=== PATIENT | female | born 1975 | race American Indian/Alaskan Native ===

== ENCOUNTER 2016-11-12 07:19 | Outpatient (CLI) | payer MEDICAID ==
--- NOTE | 2016-11-12 08:42 | Ultrasound Report ---
ULTRASOUND ABDOMEN COMPLETE: Technique: Transabdominal ultrasound with color Doppler interrogation. History: Abdominal pain. Findings: The liver is normal size, contour and echotexture. The gallbladder dimensions are within normal limits without intraluminal stone, wall thickening, or pericholecystic fluid. The CBD is normal caliber. The visualized portions of the pancreas including the head and proximal body are within normal limits. The kidneys demonstrate no hydronephrosis or mass. Cortical thickness and echogenicity are within normal limits bilaterally. The spleen and aorta are within normal limits. No aneurysmal dilatation is noted. No ascites. The bladder is unremarkable. IMPRESSION: Unremarkable abdominal ultrasound.
== END 2016-11-12 07:20 | disposition home or self-care (01) ==
LOC: US 07:19
PROVIDERS: ATTEND Internal Medicine
DX: R10.9 Unspecified abdominal pain (principal)
CPT/HCPCS: 76700

== ENCOUNTER 2017-02-11 01:48 | Emergency (ER) | payer MEDICAID ==
[2017-02-11] MEDS ORDERED: TYLENOL PO ONE (02:14)
[2017-02-11 03:14] LABS: Basophils % (Auto) 0.4 % (0.0-1.8); Eosinophils % (Auto) 1.5 % (0.0-4.3); Hematocrit 36.3 % (30.3-42.9); Mean Corpuscular HGB Conc 33 % (30-34); Mean Corpuscular Hemoglobin 28 pg (28-32); Mean Corpuscular Volume 85 fl (79-97); Platelet Count 269 K/mm3 (140-440); Red Blood Count 4.27 M/mm3 (3.65-5.03); Red Cell Distribution Width 12.3 % (13.2-15.2); White Blood Count 7.4 K/mm3 (4.5-11.0)
[2017-02-11 03:25] LABS: Alanine Aminotransferase 11 units/L (7-56); Albumin/Globulin Ratio 1.4 %; Alkaline Phosphatase 55 units/L (35-129); Anion Gap 19 mmol/L; Bilirubin,Total 0.6 mg/dL (0.1-1.2); Blood Urea Nitrogen 14 mg/dL (7-17); Calcium 8.8 mg/dL (8.4-10.2); Carbon Dioxide 24 mmol/L (22-30); Chloride 99.1 mmol/L (98-107); Glucose 95 mg/dL (65-100); Lipase 16 units/L (13-60); Potassium 3.6 mmol/L (3.6-5.0); Sodium 138 mmol/L (137-145); Total Protein 6.8 g/dL (6.3-8.2)
[2017-02-11 04:20] LABS: Bilirubin,Urine NEG (Negative); Blood,Urine MOD (Negative); Ketones,Urine NEG (Negative); Leukocyte Esterase,Urine NEG (Negative); Mucus,Urine 2+ /HPF; Nitrite,Urine NEG (Negative); Protein,Urine <15 mg/dL mg/dL (Negative); Urobilinogen,Urine < 2.0 mg/dL (<2.0)
--- NOTE | 2017-02-11 07:36 | Cat Scan Report ---
FINAL REPORT PROCEDURE: CT ABDOMEN PELVIS W CON TECHNIQUE: Computerized axial tomography of the abdomen and pelvis was performed after the IV injection of iodinated nonionic contrast. HISTORY: RIGHT LOWER ABD PAIN COMPARISON: Contrast-enhanced CT of the abdomen and pelvis 08/18/2015 FINDINGS: Visualized lower thorax: No significant abnormality. Liver: Stable 1.3 centimeter enhancement of the medial segment of the left lobe bordering the gallbladder. Spleen: Normal size and attenuation. Gallbladder and biliary system: Normal. Pancreas: Normal. Adrenals: Normal. Kidneys: Normal. GI tract: Limited in evaluation without oral contrast. No bowel obstruction or gross focal bowel abnormality. Normal appendix. Lymph nodes and mesentery: No lymphadenopathy or mesenteric mass. Vasculature: Normal. Bladder: Normal. Reproductive organs: 2.1 x 2 centimeter right ovarian hypodensity. Unremarkable left ovary. Focal air within the lower uterine segment. Peritoneum: No free fluid. Musculoskeletal structures: Umbilical hernia containing fat, hernia mouth 1.9 centimeters in transverse diameter. Other: None. IMPRESSION: Umbilical hernia containing fat hernia mouth 1.9 centimeters in transverse diameter. Correlate for symptomatology in this location. Stable 1.3 centimeter enhancement of the liver bordering the gallbladder likely a hemangioma or benign transient hepatic attenuation difference. 2.1 x 2 centimeter right ovarian hypodensity likely a cyst. Focal air within the lower uterine segment. Correlate for possible recent instrumentation possibly with tampon. Endometritis is not excluded.
[2017-02-11] MEDS ORDERED: NORCO 5/325 PO ONE ×2 (08:49→13:17)
--- NOTE | 2017-02-11 09:04 | Emergency Department Report ---
ED Abdominal Pain HPI - General Chief Complaint: Abdominal Pain Stated Complaint: RIGHT SIDE ABD PAIN Time Seen by Provider: 02/11/17 08:43 Source: patient Mode of arrival: Wheelchair Limitations: No Limitations - History of Present Illness Initial Comments: 42-year-old female presents to emergency department complaining of acute onset of right lower abdominal pain that awoke her from sleep at approximately 11:30 PM last night. Patient describes a squeezing type pain that radiates into her groin. Pain has been constant since onset. She reports mild associated nausea , but has not vomited. She denies fever, diarrhea, vaginal bleeding, vaginal discharge, dysuria, or hematuria. There are no other complaints. MD Complaint: abdominal pain -: Sudden, During the night Time: 22:30 Location: RLQ Radiation: other (pelvis) Migration to: no migration Severity: severe Severity scale (0 -10): 10 Quality: other (squeezing) Consistency: constant Improves With: nothing Worsens With: nothing Associated Symptoms: nausea - Related Data Home Medications Medication Instructions Recorded Confirmed Last Taken Pnv with Ca,No.72/Iron/FA [Pnv 1 tab PO DAILY 01/03/14 08/18/15 01/03/14 08:30 Plus Multivit Tab] 1tab Previous Rx's Medication Instructions Recorded Last Taken Type Ibuprofen [Motrin 800 MG tab] 800 mg PO TID PRN #30 tablet 08/20/15 Unknown Rx Labetalol [Normodyne TAB] 200 mg PO BID #60 tablet 08/20/15 Unknown Rx oxyCODONE /ACETAMINOPHEN [Percocet 1 - 2 tab PO Q4HR PRN #30 tablet 08/20/15 Unknown Rx 5/325 mg] HYDROcodone/APAP 5-325 [[place] 1 each PO Q6HR PRN #30 tablet 02/11/17 Unknown Rx 5/325] Allergies Allergy/AdvReac Type Severity Reaction Status Date / Time No Known Allergies Allergy Verified 10/16/13 08:48 ED Review of Systems ROS: Stated complaint: RIGHT SIDE ABD PAIN Other details as noted in HPI Comment: All other systems reviewed and negative Gastrointestinal: as per HPI, abdominal pain, nausea ED Past Medical Hx - Past Medical History Previous Medical History?: Yes Hx Hypertension: Yes Hx Heart Attack/AMI: No Hx Congestive Heart Failure: No Hx Diabetes: No Hx Deep Vein Thrombosis: No Hx Pulmonary Embolism: No Hx GERD: Yes Hx Liver Disease: No Hx Renal Disease: No Hx Sickle Cell Disease: No Hx Headaches / Migraines: No Hx Seizures: No Hx Asthma: Yes Hx COPD: No Hx Tuberculosis: No Hx HIV: No - Surgical History Past Surgical History?: Yes Additional Surgical History: C SECTION - Family History Family history: no significant - Social History Smoking Status: Never Smoker Substance Use Type: None - Medications Home Medications: Home Medications Medication Instructions Recorded Confirmed Last Taken Type Pnv with Ca,No.72/Iron/FA [Pnv 1 tab PO DAILY 01/03/14 08/18/15 01/03/14 08:30 History Plus Multivit Tab] 1tab Ibuprofen [Motrin 800 MG tab] 800 mg PO TID PRN #30 tablet 08/20/15 Unknown Rx Labetalol [Normodyne TAB] 200 mg PO BID #60 tablet 08/20/15 Unknown Rx oxyCODONE /ACETAMINOPHEN [Percocet 1 - 2 tab PO Q4HR PRN #30 tablet 08/20/15 Unknown Rx 5/325 mg] HYDROcodone/APAP 5-325 [[place] 1 each PO Q6HR PRN #30 tablet 02/11/17 Unknown Rx 5/325] ED Physical Exam - General Limitations: No Limitations General appearance: alert, in no apparent distress - Head Head exam: Present: atraumatic, normocephalic - Eye Eye exam: Present: normal appearance, PERRL, EOMI - ENT ENT exam: Present: normal exam, normal orophraynx, mucous membranes moist - Neck Neck exam: Present: normal inspection, full ROM. Absent: tenderness - Respiratory Respiratory exam: Present: normal lung sounds bilaterally. Absent: respiratory distress - Cardiovascular Cardiovascular Exam: Present: regular rate, normal rhythm, normal heart sounds - GI/Abdominal GI/Abdominal exam: Present: soft, tenderness (moderate tenderness to palpation right lower quadrant), normal bowel sounds. Absent: distended, guarding, rebound - Extremities Exam Extremities exam: Present: normal inspection, full ROM. Absent: tenderness - Back Exam Back exam: Present: normal inspection, full ROM. Absent: tenderness - Neurological Exam Neurological exam: Present: alert, oriented X3. Absent: motor sensory deficit - Skin Skin exam: Present: warm, dry, intact ED Course Vital Signs 02/11/17 02/11/17 02:04 08:59 Temperature 97.8 F Pulse Rate 68 Respiratory 22 16 Rate Blood Pressure 127/86 O2 Sat by Pulse 97 Oximetry ED Medical Decision Making - Lab Data Result diagrams: 02/11/17 02:38 02/11/17 02:38 - Radiology Data Radiology results: report reviewed, image reviewed CT of the abdomen and pelvis reveals a 2.1 x 2 cm hypodensity suggestive of a right ovarian cyst. There is also some air in the lower uterine segment consistent with recent instrumentation. Pelvic ultrasound reveals a 1.9 cm right ovarian cyst. There are no other abnormalities noted. - Medical Decision Making Lab and imaging results reviewed and discussed with the patient. Patient reports her pain is improved with medication. Patient will be discharged home at this time to follow up with her [employer]. - Differential Diagnosis abdominal pain, UTI, appendicitis, ruptured ovarian cyst Critical care attestation.: If time is entered above; I have spent that time in minutes in the direct care of this critically ill patient, excluding procedure time. ED Disposition Clinical Impression: Right ovarian cyst Disposition: DISCHARGED TO HOME OR SELFCARE Is pt being admited?: No Condition: Stable Instructions: Ovarian Cyst (ED) Prescriptions: HYDROcodone/APAP 5-325 [[place] 5/325] 1 each PO Q6HR PRN #30 tablet PRN Reason: Pain Referrals: DARBY HERNANDEZ MD [Staff Physician] - 3-5 Days Time of Disposition: 13:32
--- NOTE | 2017-02-11 12:47 | Ultrasound Report ---
ULTRASOUND PELVIC COMPLETE HISTORY: Right pelvic pain. TECHNIQUE: Transabdominal and transvaginal ultrasound with color and spectral doppler interrogation. FINDINGS: Hysterectomy changes are noted consistent with history. The right ovary measures 3.3 x 2.1 x 2.6 cm. A 1.9 cm cyst is noted in the right ovary. The left ovary is unremarkable measuring 3.4 x 4.0 x 2.7 cm. IMPRESSION: 1.9 cm right ovarian cyst.
[2017-02-11 13:51] VITALS: BP 134/82
== END 2017-02-11 13:51 | disposition home or self-care (01) ==
LOC: ED 01:48
DX: N83.201 Unspecified ovarian cyst, right side (principal); I10 Essential (primary) hypertension; K21.9 Gastro-esophageal reflux disease without esophagitis
CPT/HCPCS: 36415; 74177; 76830; 76856; 80053; 81001; 83690; 85025; 99284; Q9967

== ENCOUNTER 2017-12-31 16:59 | Emergency (ER) | payer MEDICAID ==
[2017-12-31 17:08] VITALS: BP 182/101
[2017-12-31] MEDS ORDERED: ASPIRIN PO ONE (17:21)
== END 2017-12-31 17:19 | disposition left against medical advice (07) ==
LOC: ED 16:59
DX: R07.9 Chest pain, unspecified (principal); Z53.21 Procedure and treatment not carried out due to patient leaving prior to being seen by health care provider
CPT/HCPCS: 93005; 93010

== ENCOUNTER 2018-01-19 12:02 | Outpatient (CLI) | payer MEDICAID ==
--- NOTE | 2018-01-19 15:18 | Cat Scan Report ---
CT SINUSES WITHOUT CONTRAST INDICATION: Atypical facial pain, chronic rhinitis. COMPARISON: None similar. FINDINGS: Noncontrast sinus CT demonstrates clear paranasal sinuses and imaged temporal bone air cells. Mild nasal septal deviation superiorly, coronal image 32. Unremarkable eye globes and retrobulbar fat. Normal imaged intracranial appearance. Intact facial bones. Multiple radiopaque dental fillings and some dental disease. CONCLUSION: Unremarkable sinus CT with few incidental findings, as described. Thank you for the opportunity to participate in this patient's care.
== END 2018-01-19 12:03 | disposition home or self-care (01) ==
LOC: CT 12:02
PROVIDERS: ATTEND Otolaryngology
DX: J31.0 Chronic rhinitis (principal); J34.2 Deviated nasal septum; I10 Essential (primary) hypertension; K21.9 Gastro-esophageal reflux disease without esophagitis; J45.909 Unspecified asthma, uncomplicated; Z79.899 Other long term (current) drug therapy
CPT/HCPCS: 70486

== ENCOUNTER 2019-05-21 09:29 | Emergency (ER) | payer MEDICAID ==
[2019-05-21] MEDS ORDERED: ASPIRIN PO ONE (09:37)
[2019-05-21 09:39] VITALS: BP 142/76
[2019-05-21 10:02] LABS: Basophils # (Auto) 0.1 K/mm3 (0.0-0.1); Basophils % (Auto) 0.8 % (0.0-1.8); Eosinophils # (Auto) 0.1 K/mm3 (0.0-0.4); Eosinophils % (Auto) 1.7 % (0.0-4.3); Hematocrit 39.4 % (30.3-42.9); Lymphocytes # (Auto) 2.5 K/mm3 (1.2-5.4); Lymphocytes % (Auto) 32.7 % (13.4-35.0); Mean Corpuscular HGB Conc 33 % (30-34); Mean Corpuscular Volume 89 fl (79-97); Monocytes # (Auto) 0.4 K/mm3 (0.0-0.8); Monocytes % (Auto) 5.7 % (0.0-7.3); Platelet Count 299 K/mm3 (140-440); Red Blood Count 4.44 M/mm3 (3.65-5.03); Red Cell Distribution Width 13.3 % (13.2-15.2)
[2019-05-21 10:19] LABS: BUN/Creatinine Ratio 11; Blood Urea Nitrogen 10 mg/dL (7-17); Calcium 9.4 mg/dL (8.4-10.2); Hemolysis Index 11
--- NOTE | 2019-05-21 10:20 | XRay Report ---
CHEST 2 VIEWS, 05/21/2019 INDICATION: Chest pain COMPARISON: None FINDINGS: Support devices: None Heart: Heart size and pulmonary vascularity are within normal limits. Lungs/pleura: There is no focal airspace disease or significant pleural effusion. Additional findings: No additional acute findings. IMPRESSION: 1. No evidence of acute cardiopulmonary process. Signer Name: Lora Mitchell MD Signed: 05/21/2019 10:16 AM Workstation Name: [email or web address]
--- NOTE | 2019-05-21 11:10 | Emergency Department Report ---
ED Chest Pain HPI - General Chief Complaint: Chest Pain Stated Complaint: CHEST PAIN/HEADACHE Time Seen by Provider: 05/21/19 10:53 Source: patient Mode of arrival: Ambulatory Limitations: No Limitations - History of Present Illness Initial Comments: Mrs. Rojo is a 44-year-old female with history of VSD, hypertension, degenerative disc disease of the spine who presents with chest pain and back pain. She was evaluated by her primary physician [facility] on Wednesday for elevated blood pressure and chest pain. She was diagnosed with anxiety. She was told to go home relax. However she had persistent chest pain over the weekend nonexertional. She also has exacerbation of back pain related to "degenerative disc disease". Denies shortness of breath. Denies leg pain. No recent travel. MD Complaint: chest pain -: Gradual, days(s) (3) Onset: during rest Pain Location: substernal, left chest, right chest Severity: mild Quality: sharp Consistency: constant Improves With: nothing Worsens With: nothing - Related Data Home Medications Medication Instructions Recorded Confirmed Last Taken Pnv,Calcium 72/Iron/Folic Acid 1 tab PO DAILY 01/03/14 08/18/15 01/03/14 08:30 [Pnv Plus Multivit Tab] 1tab Previous Rx's Medication Instructions Recorded Last Taken Type Ibuprofen [Motrin 800 MG tab] 800 mg PO TID PRN #30 tablet 08/20/15 Unknown Rx Labetalol [Labetalol 200mg TAB] 200 mg PO BID #60 tablet 08/20/15 Unknown Rx oxyCODONE /ACETAMINOPHEN [Percocet 1 - 2 tab PO Q4HR PRN #30 tablet 08/20/15 Unknown Rx 5/325 mg] HYDROcodone/APAP 5-325 [[place] 1 each PO Q6HR PRN #30 tablet 02/11/17 Unknown Rx 5/325] Allergies Allergy/AdvReac Type Severity Reaction Status Date / Time No Known Allergies Allergy Verified 10/16/13 08:48 Heart Score - HEART Score History: Slightly suspicious EKG: Normal Age: 45-65 Risk factors: 1-2 risk factors Troponin: < normal limit HEART Score: 2 ED Review of Systems ROS: Stated complaint: CHEST PAIN/HEADACHE Other details as noted in HPI Comment: All other systems reviewed and negative Constitutional: denies: fever, malaise Cardiovascular: chest pain ED Past Medical Hx - Past Medical History Previous Medical History?: Yes Hx Hypertension: Yes Hx Heart Attack/AMI: No Hx Congestive Heart Failure: No Hx Diabetes: No Hx Deep Vein Thrombosis: No Hx Pulmonary Embolism: No Hx GERD: Yes Hx Liver Disease: No Hx Renal Disease: No Hx Sickle Cell Disease: No Hx Headaches / Migraines: No Hx Seizures: No Hx Asthma: Yes Hx COPD: No Hx Tuberculosis: No Hx HIV: No - Surgical History Past Surgical History?: Yes Additional Surgical History: C SECTION - Social History Smoking Status: Never Smoker Substance Use Type: None - Medications Home Medications: Home Medications Medication Instructions Recorded Confirmed Last Taken Type Pnv,Calcium 72/Iron/Folic Acid 1 tab PO DAILY 01/03/14 08/18/15 01/03/14 08:30 History [Pnv Plus Multivit Tab] 1tab Ibuprofen [Motrin 800 MG tab] 800 mg PO TID PRN #30 tablet 08/20/15 Unknown Rx Labetalol [Labetalol 200mg TAB] 200 mg PO BID #60 tablet 08/20/15 Unknown Rx oxyCODONE /ACETAMINOPHEN [Percocet 1 - 2 tab PO Q4HR PRN #30 tablet 08/20/15 Unknown Rx 5/325 mg] HYDROcodone/APAP 5-325 [[place] 1 each PO Q6HR PRN #30 tablet 02/11/17 Unknown Rx 5/325] ED Physical Exam - General Limitations: No Limitations General appearance: alert, in no apparent distress - Head Head exam: Present: atraumatic, normocephalic - Eye Eye exam: Present: normal appearance - ENT ENT exam: Present: mucous membranes moist - Neck Neck exam: Present: normal inspection, full ROM - Respiratory Respiratory exam: Present: normal lung sounds bilaterally. Absent: respiratory distress, wheezes, rales, rhonchi - Cardiovascular Cardiovascular Exam: Present: regular rate, normal rhythm, normal heart sounds. Absent: systolic murmur, diastolic murmur, rubs, gallop - GI/Abdominal GI/Abdominal exam: Present: soft, normal bowel sounds. Absent: distended, tenderness, guarding, rebound - Extremities Exam Extremities exam: Present: normal inspection - Back Exam Back exam: Present: normal inspection - Neurological Exam Neurological exam: Present: alert, oriented X3 - Psychiatric Psychiatric exam: Present: normal affect, normal mood - Skin Skin exam: Present: warm, dry, intact, normal color. Absent: rash ED Course Vital Signs 05/21/19 05/21/19 05/21/19 09:34 09:36 10:40 Temperature 97.9 F 97.9 F Pulse Rate 98 H 57 L Respiratory 18 16 16 Rate Blood Pressure 142/76 Blood Pressure 142/76 [Right] O2 Sat by Pulse 98 98 Oximetry ED Medical Decision Making - Lab Data Result diagrams: 05/21/19 09:45 05/21/19 09:45 Abnormal Lab Results 05/21/19 05/21/19 09:45 09:45 WBC 7.5 RBC 4.44 Hgb 13.0 Hct 39.4 MCV 89 MCH 29 MCHC 33 RDW 13.3 Plt Count 299 Lymph % (Auto) 32.7 [place] % (Auto) 5.7 Eos % (Auto) 1.7 Baso % (Auto) 0.8 Lymph # 2.5 [place] # 0.4 Eos # 0.1 Baso # 0.1 Seg Neutrophils % 59.1 Seg Neutrophils # 4.5 Sodium 139 Potassium 3.7 Chloride 101.1 Carbon Dioxide 27 Anion Gap 15 BUN 10 Creatinine 0.9 Estimated GFR > 60 BUN/Creatinine Ratio 11 Glucose 81 Calcium 9.4 Troponin T < 0.010 - EKG Data EKG shows normal: axis, intervals, QRS complexes, ST-T waves Rate: bradycardia - EKG Data Interpretation: normal EKG ( sinus bradycardia with exception) - Radiology Data Radiology results: report reviewed Chest x-ray radiograph no acute process according to radiology report - Medical Decision Making Atypical chest pain, no limitation of ACS or pulmonary embolism, workup during the ED encounter within normal limits including EKG chest x-ray CBC chemistry troponin. Referred to latexer and outpatient setting. Also referred to her PCP at medical clinic. Given by mouth analgesia in the ER for back pain. Critical care attestation.: If time is entered above; I have spent that time in minutes in the direct care of this critically ill patient, excluding procedure time. ED Disposition Clinical Impression: Chest pain, Chronic back pain, Degenerative disc disease Disposition: DC-01 TO HOME OR SELFCARE Is pt being admited?: No Does the pt Need Aspirin: No Condition: Stable Instructions: Chest Pain (ED) Additional Instructions: You have been referred to a latexer. Please make an appointment this week. Referrals: INBA-JANINE KHALIL MD [Staff Physician] - [facility]
[2019-05-21] MEDS ORDERED: PERCOCET 5/325 PO ONE (11:11)
[2019-05-21] MEDS ORDERED: IBUPROFEN PO ONE (11:11)
== END 2019-05-21 11:53 | disposition home or self-care (01) ==
LOC: ED 09:29
DX: R07.89 Other chest pain (principal); G89.29 Other chronic pain; M54.9 Dorsalgia, unspecified; M51.36 Other intervertebral disc degeneration, lumbar region; I10 Essential (primary) hypertension; K21.0 Gastro-esophageal reflux disease with esophagitis; J45.909 Unspecified asthma, uncomplicated; Z79.899 Other long term (current) drug therapy
CPT/HCPCS: 36415; 71046; 80048; 84484; 85025; 93005; 93010; 99284

== ENCOUNTER 2022-03-14 10:59 | Emergency (ER) | payer MEDICAID ==
[2022-03-14 11:36] VITALS: BP 154/101
== END 2022-03-14 22:30 | disposition left against medical advice (07) ==
LOC: ED 10:59
DX: M26.56 Non-working side interference (principal); Z53.21 Procedure and treatment not carried out due to patient leaving prior to being seen by health care provider

== ENCOUNTER 2022-07-21 08:13 | Day surgery (SDC) | payer MEDICAID ==
[~2022-07-21 08:13] MED LIST: ACETAMINOPHEN 500 MG TAB PO SCH; CELECOXIB 200 MG CAP PO NR; GABAPENTIN 300 MG CAP PO NR; LACTATED RINGERS 1,000 ML IV SCH; MIDAZOLAM 2 MG/2 ML INJ IV NR; SCOPOLAMINE TRANSDERMAL PATCH 72 HR TD NR; fentaNYL 100 MCG/2 ML INJ IV PRN
[2022-07-21] MEDS ORDERED: BUPIVACAINE-EPINEPHRINE/PF 0.25%-1:200,000 (30 ML) VIAL INFILTRATI ONE (09:13)
[2022-07-21] MEDS ORDERED: dexAMETHasone 4 MG/ML VIAL ONE (09:13)
[2022-07-21] MEDS ORDERED: oxyCODONE /ACETAMINOPHEN 5-325MG TAB PO PRN (09:16)
[2022-07-21] MEDS ORDERED: ONDANSETRON 4 MG/2 ML INJ IV PRN (09:16)
--- NOTE | 2022-07-21 09:16 | Anesthesia Day of Surgery ---
Anesthesia Day of Surgery - Day of Surgery Patient Examined: Yes Patient H&P Reviewed: Yes Patient is NPO: Yes
--- NOTE | 2022-07-21 09:16 | Anesthesia Consultation ---
Anesthesia Consult and Med Hx Date of service: 07/21/22 - Airway Anesthetic Teeth Evaluation: Good ROM Head & Neck: Adequate (chronic neck pain with LUE neuropathy; may be triggered by flexion/extension) Mental/Hyoid Distance: Adequate Mallampati Class: Class I Intubation Access Assessment: Good - Pre-Operative Health Status ASA Pre-Surgery Classification: ASA3 Proposed Anesthetic Plan: General Nerve Block: TAP - Pulmonary Hx Smoking: Yes (former smoker quit 8yrs) Hx Asthma: Yes (last inhaler use 7mos ago) - Cardiovascular System Hx Hypertension: Yes (took amlodipine this morning) - Central Nervous System CVA: No Hx Back Pain: Yes (w/ sciatic nerve pain on chronic opioids; took oxycodone 10mg this morning) - Endocrine Hx Renal Disease: No Hx Liver Disease: No Hx Insulin Dependent Diabetes: No Hx Non-Insulin Dependent Diabetes: No Hx Thyroid Disease: No - Additional Comments Anesthesia Medical History Comments: No hx anesthetic complications.
[2022-07-21] MEDS ORDERED: ceFAZolin/STERILE WATER 2 GM/20 ML SYRINGE IV NR (10:00)
[2022-07-21] MEDS ORDERED: HYDROmorphone 0.5 MG/0.5 ML INJ IV PRN (10:00)
[2022-07-21] MEDS ORDERED: HYDROmorphone 1 MG/1 ML INJ ONE (10:37)
[2022-07-21] MEDS ORDERED: propofoL 200 MG/20 ML VIAL IV ONE (10:38)
[2022-07-21] MEDS ORDERED: KETAMINE/STERILE WATER 50 MG/ML SYRINGE ONE (10:39)
[2022-07-21] MEDS ORDERED: fentaNYL 100 MCG/2 ML INJ ONE (11:46)
[2022-07-21] MEDS ORDERED: ESMOLOL 100 MG/10 ML INJ IV ONE (11:53)
--- NOTE | 2022-07-21 13:34 | Short Stay Summary ---
Short Stay Documentation Date of service: 07/21/22 - History Principal diagnosis: Umbilical hernia, incarcerated H&P: obtained from office - Allergies and Medications Current Medications: Allergies No Known Allergies Allergy (Verified 10/16/13 08:48) Home Medications Medication Instructions Recorded Confirmed Last Taken Type Albuterol Sulfate [Proventil Hfa] 2 puff IH PRN PRN 07/14/22 07/14/22 Unknown History Cyclobenzaprine [Flexeril] 10 mg PO TID PRN 07/14/22 07/14/22 Unknown History Gabapentin [Neurontin] 300 mg PO TID 07/14/22 07/14/22 Unknown History Oxycodone HCl [oxyCODONE] 10 mg PO TID 07/14/22 07/14/22 Unknown History amLODIPine [Norvasc] 5 mg PO DAILY 07/14/22 07/14/22 Unknown History Active Medications Acetaminophen (Acetaminophen 500 Mg Tab) 1,000 mg PO PREOP BLANQUITA Stop: 07/21/22 23:59 Last Admin: 07/21/22 08:45 Dose: 1,000 mg Cefazolin Sodium (Cefazolin/Sterile Water 2 Gm/20 Ml Syringe) 2 gm IV PREOP NR Stop: 07/21/22 23:59 Celecoxib (Celecoxib 200 Mg Cap) 200 mg PO PREOP NR Stop: 07/21/22 23:59 Last Admin: 07/21/22 08:45 Dose: 200 mg Fentanyl (Fentanyl 100 Mcg/2 Ml Inj) 100 mcg IV ONCE PRN PRN Reason: sedation for nerve block Stop: 07/21/22 23:59 Last Admin: 07/21/22 08:45 Dose: 100 mcg Gabapentin (Gabapentin 300 Mg Cap) 300 mg PO PREOP NR Stop: 07/21/22 23:59 Last Admin: 07/21/22 08:45 Dose: 300 mg Hydromorphone HCl (Hydromorphone 0.5 Mg/0.5 Ml Inj) 0.5 mg IV Q10MIN PRN PRN Reason: Pain , Severe (7-10) Stop: 07/21/22 18:00 Lactated Ringer's (Lactated Ringers) 1,000 mls @ 100 mls/hr IV DIRECT BLANQUITA Stop: 07/21/22 23:59 Last Admin: 07/21/22 09:00 Dose: 100 mls/hr Midazolam HCl (Midazolam 2 Mg/2 Ml Inj) 2 mg IV PREOP NR Stop: 07/21/22 23:59 Last Admin: 07/21/22 09:22 Dose: 2 mg Ondansetron HCl (Ondansetron 4 Mg/2 Ml Inj) 4 mg IV ONCE PRN PRN Reason: Nausea And Vomiting Stop: 07/21/22 23:59 Oxycodone/Acetaminophen (Oxycodone /Acetaminophen 5-325mg Tab) 2 tab PO ONCE PRN PRN Reason: Pain, Moderate (4-6) Stop: 07/21/22 23:59 Scopolamine (Scopolamine Transdermal Patch 72 Hr) 1 each TD PREOP NR Stop: 07/21/22 23:59 Last Admin: 07/21/22 08:45 Dose: 1 each - Brief post op/procedure progress note Date of procedure: 07/21/22 Pre-op diagnosis: Incarcerated umbilical hernia Post-op diagnosis: same Procedure: Robotic assisted umbilical hernia repair with mesh Anesthesia: GETA, other (TAP block) Findings: 1.5 cm umbilical hernia defect containing incarcerated omentum Surgeon: SALVADOR CALLEJAS Project Hire: DIPESH MARTI Estimated blood loss: minimal (15cc) Pathology: none Condition: stable - Hospital course Hospital course: Patient observed in PACU and discharged home in stable condition when criteria met - Disposition Condition at discharge: Good Disposition: 01 HOME / SELF CARE / HOMELESS Short Stay Discharge Plan Activity: other (No heavy lifting for 6 weeks) Diet: regular Wound: open to air, per your surgeon's advice Additional Instructions: See printed discharge instructions Follow up with: PRIMARY CARE, [Primary Care Provider] - 7 Days SALVADOR CALLEJAS DO [Staff Physician] - 14 Days Prescriptions: Ibuprofen [Motrin 800 MG tab] 800 mg PO Q8HR PRN #30 tablet PRN Reason: Pain, Moderate (4-6)
--- NOTE | 2022-07-21 13:47 | Operative Report ---
Operative Report Operative Report: Date of procedure: 07/21/22 Pre-op diagnosis: Incarcerated umbilical hernia Post-op diagnosis: same Procedure: Robotic assisted umbilical hernia repair with mesh Anesthesia: GETA, other (TAP block) Findings: 1.5 cm umbilical hernia defect containing incarcerated omentum Surgeon: SALVADOR CALLEJAS Linoleum Floor Layer: DIPESH MARTI Estimated blood loss: minimal (15cc) Pathology: none Condition: stable Hospital course: Patient observed in PACU and discharged home in stable condition when criteria met Condition at discharge: Good Disposition: 01 HOME / SELF CARE / HOMELESS HPI and indication: 47-year-old female who presents to surgery clinic for evaluation of a bulge at the umbilicus. This bulge had become more symptomatic. Exam revealed an umbilical hernia which was soft but not reducible. Hernia repair was recommended. All risk, benefits, alternatives surgery discussed with patient questions answered. It was recommended that the hernia be repaired robotically. Alternatives such as open versus laparoscopic repair were also discussed. The patient was in agreement and consent obtained. Procedure in detail: The patient was identified in the preoperative area and taken back to the operating room and placed on the operating room table in supine position. After anesthesia was induced, both arms were tucked with all bony prominences padded appropriately. The abdomen was then prepped and draped in usual sterile fashion and a timeout was performed. The patient had a TAP block performed by anesthesia preoperatively. A phyllis incision was made in the left upper quadrant at Hernandez's point through which a Veress needle was inserted. The Veress needle position was confirmed using the saline drop test and the abdomen insufflated to 15 mmHg without incident. A 5 mm incision was made in the left upper quadrant through which a 5 mm Optiview trocar was placed under direct visualization. The abdomen was inspected and there was no underly ing injury to any of the abdominal structures. The Veress needle was identified and removed. An 8 mm robotic trocar was placed in the left lateral abdomen and an 8 mm robotic trocar in the left lower quadrant under direct visualization. The 5 mm left upper quadrant trocar was replaced with an 8 mm robotic trocar under direct visualization. The patient was tilted to the right and the robot docked. A fenestrated bipolar was placed in arm #2 and a monopolar scissor in arm #4. The surgeon was then transferred to the console. I started by creating a preperitoneal flap to the left of the hernia. The peritoneum was scored to the left of the hernia defect using a monopolar scissor and a preperitoneal plane developed in an avascular plane. Using a combination of blunt dissection and cautery the plane superior to and inferior to the hernia was developed. There was incarcerated omentum which was dissected from the peritoneum and reduced. I then carried my preperitoneal dissection to the right aspect of the hernia defect in order to accommodate mesh placement. Once the dissection was complete the pocket was checked for hemostasis. The hernia defect measured 1.5 cm. It was decided to fix the hernia with a 10cm bard soft mesh. The mesh along with suture material placed into the abdomen by the surgical services assistant. First the hernia defect was closed using a 0 VLoc running stitch. The pressure in the abdomen was turned down to 8 mmHg. The mesh was then placed in the preperitoneal space and centered. The mesh was sutured into place in all 4 quadrants using interrupted 2-0 Vicryl stitches. The mesh laid flat in the preperitoneal space with adequate overlap of the hernia. The peritoneum was approximated using 3 0 VLoc running stitch. A defect in the peritoneum was closed using another 3-0 vloc running stitch. The entirety of the mesh was covered by peritoneum. All sharp and suture material was removed under direct visualization by the surgical services assistant. The robot was undocked. The abdomen was desufflated and all ports removed. The skin incisions were closed with 4-0 Monocryl subcuticular stitches and skin glue. A 4 x 4 gauze was balled up and placed at the site of the umbilical hernia and secured with a Tegaderm. At the end of the case, all sponge, instrument, sharp counts were correct 2. An abdominal binder was applied to the patient. The patient was awoken from anesthesia, extubated and taken to PACU in stable condition.
[2022-07-21] MEDS ORDERED: hydrALAZINE 20 MG/1 ML INJ IV PRN (15:00)
[2022-07-21 15:15] VITALS: BP 145/82
--- NOTE | 2022-07-21 15:17 | Post Anesthesia Evaluation ---
- Post Anesthesia Evaluation Patient Participated: Yes Airway Patent: Yes Stable Respiratory Function: Yes Nausea/Vomiting: No Temp > 96.8F: Yes Pain Manageable: Yes Adequeate Hydration: Yes Anesthesia Complications: No
== END 2022-07-21 15:00 | disposition home or self-care (01) ==
LOC: OR 08:13
PROVIDERS: ATTEND Surgery
DX: K42.0 Umbilical hernia with obstruction, without gangrene (principal); I10 Essential (primary) hypertension; G62.9 Polyneuropathy, unspecified; G43.909 Migraine, unspecified, not intractable, without status migrainosus; J45.909 Unspecified asthma, uncomplicated; K21.9 Gastro-esophageal reflux disease without esophagitis; M19.90 Unspecified osteoarthritis, unspecified site; F31.9 Bipolar disorder, unspecified; F41.9 Anxiety disorder, unspecified; D64.9 Anemia, unspecified; Z91.81 History of falling; Z79.899 Other long term (current) drug therapy; Z87.891 Personal history of nicotine dependence; Z90.710 Acquired absence of both cervix and uterus; Z98.890 Other specified postprocedural states; Z83.3 Family history of diabetes mellitus; Z82.49 Family history of ischemic heart disease and other diseases of the circulatory system
CPT/HCPCS: 49653; 64488; C1781; J0690; J1100; J1170; J2250; J2704; J3010; J3490; J7120; S2900; 64450